=== PATIENT | female | born 1935 | race Caucasian/White ===

== ENCOUNTER 2019-06-14 07:08 | Emergency (ER) | payer MEDICARE, OTHER ==
[~2019-06-14] VITALS: Ht 162.6 cm; Wt 63.5 kg
[2019-06-14] MEDS ORDERED: LANOXIN125 MCG (07:31)
[2019-06-14] MEDS ORDERED: BUPR75 (07:32)
[2019-06-14] MEDS ORDERED: LEVSOD137 (07:32)
[2019-06-14] MEDS ORDERED: Norco 5-325 Ta1 EACH PO (08:28)
== END 2019-06-14 08:42 | disposition home or self-care (01) ==
LOC: ER 07:08
DX: S42.251A Displaced fracture of greater tuberosity of right humerus, initial encounter for closed fracture (principal); I48.91 Unspecified atrial fibrillation; Z88.0 Allergy status to penicillin; Z87.891 Personal history of nicotine dependence; W19.XXXA Unspecified fall, initial encounter
CPT/HCPCS: 29105; 73030; 99283-25; A9270-GY